=== PATIENT | male | born 1945 | race Caucasian/White ===

== ENCOUNTER → 2016-08-03 | Outpatient (CLI) | payer OTHER ==
--- NOTE | 2016-08-03 09:22 | US ---
Sonography of the Abdominal Aorta Clinical History: 71 year-old male with a family history of an abdominal aortic aneurysm. The patient has no complaints and presents for screening evaluation. ICD-10 Diagnostic Code: Z82.49. Technique: A curvilinear 5 MHz transducer was used to sonographically evaluate the course of the abdo dee aorta to the aortoiliac bifurcation. Color Doppler and spectral Doppler are used. Comparison Study: Unenhanced CT scan of the abdomen, dated March 28, 2011. Findings: The proximal abdominal aorta measures 2.3 x 2.4 cm; the midabdominal aorta measures 1.9 x 1 .9 cm; and the distal abdominal aorta measures 2.2 x 2.1 cm. There is some mild peripheral echogenic atherosclerotic plaque along the posterior margin of the distal abdominal aorta. The proximal right c ommon iliac artery measures 1.6 x 1.6 cm, and the proximal left common iliac artery also measures 1.6 x 1.6 cm. The peak systolic velocity in the abdominal aorta is 99 cm/s. Impression: Mild atherosclerotic features, with no sonographic evidence of an aneurysm.
== END ==
LOC: FIMAGING 08:00
PROVIDERS: ATTEND Family Medicine
DX: Z13.6 Encounter for screening for cardiovascular disorders (principal); Z82.49 Family history of ischemic heart disease and other diseases of the circulatory system

== ENCOUNTER 2017-09-28 23:57 | Emergency (ER) | payer OTHER ==
[2017-09-29] MEDS ORDERED: METOPROLOL TARTRATE 25 MG TAB PO ONE (00:41)
[2017-09-29] MEDS ORDERED: METOPROLOL TARTRATE 25 MG TAB ONE (00:47)
[2017-09-29 01:55] VITALS: BP 169/106
--- NOTE | 2017-09-29 02:21 | EDPHY ---
H & P Stated Complaint: ANXIETY AND HTN X2 WKS, CHANGED MED TO AMLODIPINE- HASNT STARTED YET Time Seen by Provider: 09/29/17 00:29 HPI/ROS: Chief Complaint: Hypertension, anxiety HPI: 72-year-old male with a history of hypertension anxiety began feeling increasingly anxious this evening. He checked his blood pressure noted that it was 200 systolic. Patient became increasingly anxious and recheck did note his blood pressure was not dropping. He is taking amlodipine and metoprolol. He has been taking them as prescribed. No chest pain or shortness of breath. No palpitations. No nausea or vomiting. He states he has been having increasing anxiety over the last 2 weeks has been using increasing amounts of Ativan, up to 5 tablets a week. He was trying to find a psychiatrist today without success and is feeling increasingly anxious. ROS: 10 point Review of Systems is negative except as noted in the HPI. PMH: Hypertension, anxiety Social History: No smoking, no alcohol, no recreational drug use Family History: non-contributory Physical Exam: Gen: Awake, Alert, No Distress HEENT: Nose: no rhinorrhea Eyes: PERRLA, EOMI Mouth: Moist mucosa Neck: Supple, no JVD Chest: nontender, lungs clear to auscultation Heart: S1, S2 normal, no murmur Abd: Soft, non-tender, no guarding Back: no CVA tenderness, no midline tenderness Ext: no edema, non-tender Skin: no rash Neuro: CN II-XII intact, Sensation grossly intact, Strength 5/5 in bilateral upper and lower extremities - Personal History Current Tetanus/Diphtheria Vaccine: Yes Tetanus Vaccine Date: 2016 - Medical/Surgical History Hx Asthma: No Hx Chronic Respiratory Disease: No Hx Diabetes: No Hx Cardiac Disease: No Hx Renal Disease: Yes Hx Cirrhosis: No Hx Alcoholism: No Hx HIV/AIDS: No Hx Splenectomy or Spleen Trauma: No Other PMH: HTN, GOUT, PULMONARY EMBOLISM, L NEPHRECTOMY - Social History Smoking Status: Never smoked Constitutional: Initial Vital Signs Temperature (C) 37.1 C 09/29/17 00:14 Heart Rate 68 09/29/17 00:14 Respiratory Rate 18 09/29/17 00:14 Blood Pressure 197/124 H 09/29/17 00:14 O2 Sat (%) 94 09/29/17 00:14 O2 Delivery Mode Room Air Allergies/Adverse Reactions: No Known Allergies Allergy (Verified 09/29/17 00:10) Home Medications: Medication Instructions Recorded Metoprolol Tartrate [Lopressor 25 25 mg PO BID 03/24/11 mg (*)] Simvastatin [Zocor 20 mg] 20 mg PO HS 03/24/11 Allopurinol [Allopurinol 100 MG 100 mg PO HS 02/11/14 (*)] Allopurinol [Allopurinol 100 MG 200 mg PO DAILY 02/11/14 (*)] Enalapril Maleate [Vasotec 10 MG 10 mg PO BID 02/11/14 (*)] Herbals/Supplements -Info Only 1 ea PO DAILY 02/11/14 ZOLPIDEM TARTRATE [Ambien CR 12.5 12.5 mg PO HS 02/11/14 mg] Aspirin 325 mg (*) 09/29/17 Ativan 09/29/17 Medical Decision Making ED Course/Re-evaluation: 72-year-old male with hypertension. No chest pain headache or other symptoms suggestive of end-organ dysfunction. I will give him metoprolol here and reassess. Patient is feeling improved. Blood pressure is 170 systolic. He is feeling less anxious. I have counseled him on blood pressure control and appropriate times to check his blood pressure. He will follow up with primary care physician for further evaluation. Will also refer him for outpatient mental health follow-up. - Data Points Medications Given: Discontinued Medications Metoprolol Tartrate (Lopressor) 25 mg PO EDNOW ONE Stop: 09/29/17 00:42 Last Admin: 09/29/17 00:46 Dose: 25 mg Departure - Departure Disposition: Home, Routine, Self-Care Clinical Impression: High blood pressure Condition: Good Instructions: Chronic Hypertension (ED), Anxiety (ED) Additional Instructions: Follow up with primary care physician to recheck her blood pressure and to discuss treatment for anxiety. You may also call [facility] for recommendations for treatment of your anxiety. Return to the emergency department for uncontrolled blood pressure, chest pain, headache, nausea, vomiting, shortness of breath, anxiety, or any other concerns. Referrals: Malcolm Richmond MD [Primary Care Provider] - As per Instructions
== END 2017-09-29 02:29 | disposition home or self-care (01) ==
DX: I10 Essential (primary) hypertension (principal); Z79.82 Long term (current) use of aspirin